=== PATIENT | female | born 1975 | race Hispanic/Latino ===

== ENCOUNTER 2018-07-09 07:54 | Outpatient (CLI) | payer BC, OTHER ==
--- NOTE | 2018-07-09 09:07 | MRI ---
MRI Upper Ext Jt Rt WO Con History: [S 63.641a rupture of the ulnar collateral ligament] Comparison: Finger radiographs May 27, 2018 Findings: There is a fluid-filled defect at the distal insertion of the ulnar collateral ligament of the thumb metacarpal phalangeal joint. The proximal fibers are directed away from the joint superficial to the adductor aponeurosis which has a normal insertion. Subtle edema of the proximal ph alanx of the thumb. Musculature is normal. Radial collateral ligament is normal. The extensor and flexor tendons are norm al. There is scar and granulation tissue in situ at the expected location of the ulnar collateral ligamen t. Impression: Stener lesion of the ulnar collateral ligament thumb metacarpal phalangeal joint which th ere is a rupture of the insertion of the proximal phalanx base with the proximal fibers directed away from the joint superficial to the abductor aponeurosis.
== END 2018-07-09 07:55 | disposition home or self-care (01) ==
LOC: SCSMRI 07:54
PROVIDERS: ATTEND Orthopaedic Surgery Hand Surgery
DX: S63.641A Sprain of metacarpophalangeal joint of right thumb, initial encounter (principal); M75.81 Other shoulder lesions, right shoulder

== ENCOUNTER 2018-07-19 10:30 | Outpatient (CLI) | payer BC ==
[2018-07-19 12:00] LABS: Bilirubin Negative (Negative); Blood, Urine Negative (Negative); Clarity CLEAR (Clear); Glucose, Urine (Dipstick) Negative (Negative); Leukocyte Negative (Negative); Nitrite Negative (Negative); Protein, Urine (Dipstick) Negative (Neg-Trace); Specific Gravity, Urine 1.025 (1.002-1.036); Urobilinogen 0.2 mg/dL (0.2-1.0); pH, Urine 5.5 (5.0-9.0)
[2018-07-19 12:02] LABS: #Eosinphils 0.2 thou/uL (0.0-0.7); #Lymphocytes 1.9 thou/uL (1.20-3.40); #Monocytes 0.6 thou/uL (0.11-0.59); #Neutrophils 5.9 thou/uL (1.40-6.50); %Basophils 0.5 % (0.0-1.0); %Eosinophils 2.2 % (0.0-10.0); %Monocytes 7.1 % (0.0-10.0); %Neutrophils 68.3 % (42.0-75.0); Hemoglobin 14.6 g/dL (12.0-16.0); Mean Corpuscular HGB CONC 33.2 g/dL (32.0-36.0); Mean Corpuscular Hemoglobin 30.6 pg (27.0-31.0); Mean Platelet Volume 10.3 fL (7.4-10.4); Platelet Count 194 thou/uL (130-400); RBC Distribution Width 11.6 % (11.5-14.5); Red Blood Cell (RBC) Count 4.76 mill/uL (4.20-5.40); White Blood Cell (WBC) Count 8.6 thou/uL (4.8-10.8)
[2018-07-19 12:04] LABS: Bacteria/HPF None Seen HPF (None Seen); Hyaline Casts/LPF 0-3 HYALINE CAST LPF (0-3 Hyaline); Pathc Cast-AUWi Flag 0.13 (0-2.49); RBC/HPF 0-3 HPF (0-3); Squamous Epithelial 0-3 HPF (0-3); WBC/HPF 0-3 HPF (0-3)
== END 2018-07-19 10:31 | disposition home or self-care (01) ==
LOC: LABBT 10:30
PROVIDERS: ATTEND Plastic Surgery Surgery of the Hand
DX: Z01.812 Encounter for preprocedural laboratory examination (principal); S63.681D Other sprain of right thumb, subsequent encounter
CPT/HCPCS: 81001; 85025

== ENCOUNTER 2018-07-23 07:34 | Day surgery (SDC) | payer BC ==
[2018-07-19 10:48] VITALS: BMI 35.4
[2018-07-23] MEDS ORDERED: Fentanyl 100 MCG/2 ML VIAL ONE ×2 (09:21→11:34)
[2018-07-23] MEDS ORDERED: Dexamethasone 4 mg/ml Vial ONE (09:21)
[2018-07-23] MEDS ORDERED: Midazolam HCl 2 mg/2 ml Vial ONE (09:21)
[2018-07-23] MEDS ORDERED: Bupivacaine HCl 0.5%/Epinephrine 1:200,000/PF 30 ml Vial ONE (10:46)
[2018-07-23] MEDS ORDERED: Ondansetron PF 4 MG/2 ML Vial ONE ×2 (11:26→14:24)
[2018-07-23] MEDS ORDERED: Betamet Acet/Betamet Na Ph 30 MG/5 ML VIAL ONE (11:33)
[2018-07-23] MEDS ORDERED: Bupivacaine PF 0.5% 30 ML VIAL ONE (11:33)
[2018-07-23] MEDS ORDERED: Sodium Chloride 0.9% 10 ML ONE (11:33)
[2018-07-23] MEDS ORDERED: Bacitracin Zinc Ointment 30 gm TUBE ONE (11:33)
[2018-07-23] MEDS ORDERED: PROPOFOL 200 MG/20 ML VIAL ONE (14:24)
[2018-07-23] MEDS ORDERED: Dexamethasone 20 MG/5 ML VIAL ONE (14:24)
[2018-07-23] MEDS ORDERED: Lidocaine 1% PF 5 ML VIAL ONE (14:24)
[2018-07-23] MEDS ORDERED: Ketorolac Tromethamine 30 MG/ML VIAL ONE (14:43)
--- NOTE | 2018-07-23 14:46 | RAD ---
Right hand 3 views: HISTORY: Right ulnar ligament repair FINDINGS: 3 spot fluoroscopic images of the right hand demonstrate intraoperative changes of ulnar ligament rep air.
[2018-07-23] MEDS ORDERED: Promethazine HCl 25 MG/ML VIAL ONE (16:01)
--- NOTE | 2018-07-23 17:31 | OP ---
DATE OF PROCEDURE: 07/23/2018 PREOPERATIVE DIAGNOSIS: Ulnar collateral ligament rupture with retraction of the ligament. FINDINGS: 100% tear with scar tissue over the joint and insertion, but the complete tear was retracted back protruding slightly through the capsule and against the adductor, but not on top of the adductor. PROCEDURES PERFORMED: 1. Arthrotomy of metacarpophalangeal joint. 2. Right thumb ulnar collateral ligament reconstruction using available tissue with a combination of button and anchor method. 3. C-arm supervision. 4. Splint application of short-arm. TOURNIQUET TIME: 90 minute. ESTIMATED BLOOD LOSS: 10 mL. DESCRIPTION OF PROCEDURE: After successful general LMA technique, the limb was prepped and draped. The patient had a block augmented by the LMA procedure. We then tested and she had marked laxity in both 0 and 45 degrees of flexion in the ulnar collateral side, radial collateral, and palmar laxity. We then made a curvilinear incision which just proximally to the MP joint and went another 5 to 6 mm palmar. We dissected through skin and subcutaneous tissue protecting all the cutaneous nerves and not entering into the thumb, neurovascular palmar system, we visualized the retinaculum through the cut. We released the retinaculum with sharp knife blade 2/[address] from dorsal to the palmar. We held it back with a Prolene suture for gentle retraction and then now we visualized underneath the very thick ojhn white ulnar collateral ligament protruding slightly through the capsule over 3 to 4 mm area, but not through the adductor. We then freed it, we freed from the capsule, and then began to slowly allow to retract to free it where it could now reach a point 3 to 4 mm distal to the metacarpal head. We then made a trough subjacent to the articular surface that was 7 mm long and 3 mm thick and 2 mm wide. It was just underneath the adductor tubercle, where we had released about 20% of the adductor tendon. Then, we decided to use combination of a button with 3-0 Prolene in a Khoi suture for the dorsal 2/3 and for the avelar 1/3 up to the midportion overlapping with the first suture pattern ligament into the trough. Then, we drilled this to the opposite side dorsal, radial, prepared, tied over button and Adaptic. Once we had seen this, we then placed the anchor slightly distal, but certainly more palmar. This allowed us with the [id number]-gh-viggl type suture to capture 1/3 of the ulnar collateral ligament and pulled into the trough. We then pinned the joint in 30 degrees of flexion and about 10 degrees of ulnar deviation, we tied the 3-0 Prolene over the button with no complication and excellent tension with Adaptic underneath and we tied the anchor with excellent tension and no complication. We released the tourniquet. We closed the retinaculum with a running 4-0 Prolene, subcutaneous closure of the deep dermis with a running 4-0 Monocryl, and we placed Mastisol with Steri-Strips for the epidermal closure. The wire that was placed was cut just below the skin after bending it. Bulky dressing was applied along with the splint. The patient left the operating room without evidence of anesthetic or operative complication. Job ID: [id number]
== END 2018-07-23 17:15 | disposition home or self-care (01) ==
LOC: SDC 07:34
PROVIDERS: ATTEND Orthopaedic Surgery Hand Surgery
PROC: 0LS70ZZ Reposition Right Hand Tendon, Open Approach (ICD-10-PCS; principal; 2018-07-23)
DX: S63.641A Sprain of metacarpophalangeal joint of right thumb, initial encounter (principal); F41.9 Anxiety disorder, unspecified
CPT/HCPCS: 76000; C1713; J0670; J0690; J0702; J1100; J1885; J2001; J2250; J2405; J2550; J2704; J3010; J3490; S0020

== ENCOUNTER 2019-07-02 10:24 | Outpatient (CLI) | payer BC ==
--- NOTE | 2019-07-02 11:23 | MMO ---
Right Breast MAMMO Unilat Diag DDI RT+XENA. CLINICAL HISTORY: Patient is 43 years old and is seen for diagnostic exam. The patient has no family history of breast cancer. The patient has no personal history of cancer. VIEWS: The views performed were: right craniocaudal spot compression magnification; right mediolateral oblique spot compression magnification; right mediolateral oblique with tomosynthesis; right mediolateral spot compression magnification; and right mediolateral with tomosynthesis. FILMS COMPARED: The present examination has been compared to prior imaging studies performed at [facility] on 07/02/2019, and at [facility] on 06/10/2019. This study has been interpreted with the assistance of computer-aided detection. MAMMOGRAM FINDINGS: There are scattered fibroglandular densities. Additional views were performed. The mass at 3:00 right breast is likely a fibroadenoma. There are no suspicious masses, suspicious calcifications, or new areas of architectural distortion. IMPRESSION: THERE IS NO MAMMOGRAPHIC EVIDENCE OF MALIGNANCY. A ROUTINE FOLLOW-UP MAMMOGRAM IN 1 YEAR IS RECOMMENDED. THE RESULTS OF THIS EXAM WERE SENT TO THE PATIENT. ACR BI-RADS Category 2 - Benign finding MAMMOGRAPHY NOTE: 1. A negative mammogram report should not delay a biopsy if a dominant of clinically suspicious mass is present. 2. Approximately 10% to 15% of breast cancers are not detected by mammography. 3. Adenosis and dense breasts may obscure an underlying neoplasm. Reported by: CHERRY SMALLWOOD MD Electonically Signed: [id number]
--- NOTE | 2019-07-02 15:16 | ULT ---
RIGHT BREAST ULTRASOUND: HISTORY: Abnormal mammogram. FINDINGS: Correlation is made with the mammograms of 06/17/2019 and today. Sonographic evaluation of the 3 o'clock position of the right breast demonstrates a well-circumscribe d macrolobulated mass with hypoaphale with fairly uniform hypoechogenicity and no posterior enhanceme nt or shadowing. A few calcifications were also seen. This corresponds to the mass seen on the mamm ogram which also demonstrated coarse calcifications. This is most likely a fibroadenoma. IMPRESSION: BIRADS category 2 - benign findings. Return to annual mammographic screening.
== END 2019-07-02 10:25 | disposition home or self-care (01) ==
LOC: BICMAMMO 10:24
PROVIDERS: ATTEND Family Medicine
DX: R92.8 Other abnormal and inconclusive findings on diagnostic imaging of breast (principal)
CPT/HCPCS: G0279

== ENCOUNTER 2020-05-21 07:32 | Outpatient (CLI) | payer BC | END 2020-05-21 07:33 | disposition home or self-care (01) | LOC: BICULT 07:32 | PROVIDERS: ATTEND Family Medicine | DX: R74.8 Abnormal levels of other serum enzymes (principal); K76.0 Fatty (change of) liver, not elsewhere classified | CPT/HCPCS: 76705 ==